=== PATIENT | male | born 1990 | race African-American/Black ===

== ENCOUNTER → 2017-08-05 | Outpatient (CLI) | payer OTHER ==
[~2017-08-05] MED LIST: OMNIPAQUE 350 MG/ML, 100ML BOTTLE ONE
== END | disposition home or self-care (01) ==
LOC: RAD 18:23
PROVIDERS: ATTEND Family Medicine
DX: R10.31 Right lower quadrant pain (principal); R11.0 Nausea
CPT/HCPCS: 74177; Q9967